=== PATIENT | male | born 1955 | race Caucasian/White ===

== ENCOUNTER → 2022-06-20 12:47 | Outpatient (CLI) | payer OTHER, SELFPAY ==
--- NOTE | ~2022-06-20 | CT_ITS ---
EXAMINATION: CT abdomen wo/w con DATE: 06/20/2022 13:21 INDICATION: Right renal mass TECHNIQUE: Computed tomography (CT) of the abdomen and pelvis was performed without intravenous contr ast. Automated exposure control and iterative reconstruction technique were employed. Exam dose: 178 3.86 mGy-cm total exam DLP. COMPARISON: None. FINDINGS: There is approximately 17 x 25 mm mildly irregular hypoattenuating lesion of the medial mid right kidney, with attenuation of approximately 25 Hounsfield units precontrast and up to 39 Hounsfi eld units postcontrast, suggesting an enhancing solid mass. Hypernephroma is suspected. MR renal exam ination is recommended. Probable 4 mm lower pole right renal cyst and 11 mm upper pole left renal cyst. No urinary tract calculus or hydroureteronephrosis. The urinary bladder is excluded from this examina tion. There is a fat-containing umbilical hernia. The lung bases are clear of infiltrate or consolidation. Right lower lobe calcified pulmonary granulo ma. Normal heart size. No pericardial or pleural effusion. There is hepatic steatosis. No hepatic space-occupying mass lesion or bile duct dilatation. Status po st cholecystectomy. There are several calcifications in the pancreatic head and uncinate process cons istent with chronic pancreatitis. No pancreatic mass lesion is evident. Normal splenic size. Normal morphology of the adrenal glands. Postoperative change of the stomach. Minimal colonic diverticulosis; no CT evidence of diverticulitis . No bowel obstruction or intraperitoneal free air. Normal caliber of the abdominal aorta. No intraperitoneal or retroperitoneal mass lesion or adenopath y or ascites. Diffuse idiopathic skeletal hyperostosis of the thoracic spine. Multilevel moderately prominent degen erative disc disease of the lumbar spine. IMPRESSION: 17 x 25 mm mildly irregular enhancing mass of the right kidney, suspicious for possible hypernephroma. Consider MRI examination Bilateral renal cysts Hepatic steatosis Postoperative change of the stomach Minimal colonic diverticulosis Reviewed, dictated and finalized at [facility]. Reviewed, dictated and finalized at [facility]. IMPRESSION: 17 x 25 mm mildly irregular enhancing mass of the right kidney, luz spicious for possible hypernephroma. Consider MRI examination Bilateral renal cysts Hepatic steatosis Postoperative change of the stomach Minimal colonic diverticulosis
[2022-06-20 13:10] LABS: Estimated Glomerular Filt Rate > 60
== END ==
PROVIDERS: PCP Emergency Medicine
DX: N28.89 Other specified disorders of kidney and ureter (principal); N28.1 Cyst of kidney, acquired; K76.0 Fatty (change of) liver, not elsewhere classified; Z98.890 Other specified postprocedural states; K57.90 Diverticulosis of intestine, part unspecified, without perforation or abscess without bleeding
CPT/HCPCS: 74170; Q9967

== ENCOUNTER → 2022-10-03 10:41 | Outpatient (CLI) | payer OTHER, SELFPAY ==
--- NOTE | ~2022-10-03 | MR_ITS ---
EXAMINATION: MR abdomen wo/w con DATE: 10/03/2022 11:46 INDICATION: Kidney mass. TECHNIQUE: Magnetic resonance imaging (MRI) of the abdomen was performed without and with 20 mL Multi Kandace intravenous contrast. COMPARISON: CT abdomen 06/20/2022 FINDINGS: There is diffuse hepatic steatosis. There is a 2.0 cm cyst abutting the liver in the cholecystectomy bed. The spleen, pancreas, adrenal glands are normal. There is a 2.1 cm cyst with thin septations in right kidney (Bosniak type II). There are other cysts in the kidneys measuring up to 1.8 cm on the le ft (Bosniak type I). There are no dilated loops of bowel. There are no pathologically enlarged lymph nodes. There is no free intraperitoneal fluid. IMPRESSION: 1. Benign cysts in the kidneys. 2. Diffuse hepatic steatosis. Reviewed, dictated and finalized at [facility]. [employer]
== END ==
PROVIDERS: PCP Urology; Visit Provider Urology
DX: N28.89 Other specified disorders of kidney and ureter (principal); N28.1 Cyst of kidney, acquired; K76.0 Fatty (change of) liver, not elsewhere classified
CPT/HCPCS: 74183; A9577

== ENCOUNTER 2024-05-31 08:52 | Outpatient (CLI) | payer OTHER, SELFPAY ==
--- NOTE | ~2024-05-31 | MR_ITS ---
EXAMINATION: MR abdomen wo/w con DATE: 05/31/2024 10:10 INDICATION: Kidney mass. TECHNIQUE: Magnetic resonance imaging (MRI) of the abdomen was performed without and with 20 mL Multi Kandace intravenous contrast. COMPARISON: Abdomen MRI 10/03/2022, CT abdomen 06/20/2022 FINDINGS: There is diffuse hepatic steatosis. There are changes of cholecystectomy. There is a 13 mm cyst in th e gallbladder fossa with decrease in size from 20 mm. The spleen, pancreas, and adrenal glands are no rmal. There is a 2.5 cm cyst with multiple thin septations in right kidney (Bosniak IIF). There are m ultiple cysts in the kidneys measuring up to 1.8 cm on the left. There are no dilated loops of bowel. There are no pathologically enlarged lymph nodes. There is no free intraperitoneal fluid. IMPRESSION: 1. 2.5 cm Bosniak IIF cystic lesion of right kidney, increased in size from 2.1 cm on 10/03/2022. Abdo men MRI without and with contrast is recommended in one year. Reviewed, dictated and finalized at [facility]. IMPRESSION: 1. 2.5 cm Bosniak IIF cystic lesion of right kidney, increased in size from 2.1 cm on 10/03/2022. Abdomen MRI without and with contrast is recommended in one y ear.
== END 2024-05-31 08:53 | disposition home or self-care (01) ==
LOC: MICIMG 08:55
PROVIDERS: PCP Urology; Visit Provider Urology
DX: N28.89 Other specified disorders of kidney and ureter (principal)
CPT/HCPCS: 74183; A9577

== ENCOUNTER 2024-12-16 10:00 | Outpatient (CLI) | payer OTHER, SELFPAY ==
--- NOTE | ~2024-12-16 | MR_ITS ---
EXAMINATION: MR abdomen wo/w con DATE: 12/16/2024 11:01 INDICATION: Renal mass TECHNIQUE: Magnetic resonance imaging (MRI) of the abdomen was performed without and with 20 mL Multi merrill intravenous contrast. Sequences included coronal T2-weighted SS-FSE, coronal and axial FS 2D-F IESTA, axial STIR FSE, axial T2-weighted SS-FSE, axial T2-weighted FS SS-FSE, axial diffusion-weighte d SE, axial dual-echo T1-weighted FSPGR, and axial and coronal T1-weighted LAVA. Postcontrast axial T 1-weighted LAVA images were obtained in a time course. Postcontrast coronal T1-weighted LAVA images w ere obtained. COMPARISON: 05/31/2024, 10/03/[address] dated 06/20/2022 FINDINGS: Heart size normal. No pericardial or pleural effusion. Status post cholecystectomy. Unchanged chronic 1.5 cm cystic lesion at the gallbladder fossa. The spleen, pancreas and bilateral adrenal glands are normal. There are few simple appearing T2 hyperintense cyst in the left kidney the largest a 2.9 cm parapelvic cyst. No interval change in a 2.5 cm Bosniak 2F cystic lesion in the right kidney with mul tiple thin but discernible enhancing septations which measured less than 2 mm in thickness and withou t discrete nodular enhancing soft tissue component. Additional subcentimeter T2 hyperintense nonenhan cing simple cyst in the right kidney. Visualized portions of bowels are unremarkable. No pathological ly enlarged abdominal or upper pelvic lymphadenopathy. Moderate lumbar spondylosis. There is mild enh ancement and increased T2 signal associated with a likely subacute superior endplate compression frac ture with negligible height loss at the right side of the L5 vertebral body. No other abnormally enha ncing bone lesions. IMPRESSION: 1. Unchanged 2.5 cm Bosniak 2F cystic lesion at the right kidney. Recommend continued annual follow-u p with pre and postcontrast MRI. 2. Mild edema and enhancement underlying a likely subacute superior endplate compression fracture at the right side of L5 with minimal vertebral body height loss. Reviewed, dictated and finalized at [facility]. IMPRESSION: 1. Unchanged 2.5 cm Bosniak 2F cystic lesion at the right kidney. Recommend con tinued annual follow-up with pre and postcontrast MRI. 2. Mild edema and enhancement underlying a likely subacute superior endplate co mpression fracture at the right side of L5 with minimal vertebral body height l oss.
== END 2024-12-16 10:01 | disposition home or self-care (01) ==
PROVIDERS: PCP Urology; Visit Provider Urology
DX: N28.1 Cyst of kidney, acquired (principal); N28.89 Other specified disorders of kidney and ureter
CPT/HCPCS: 74183; A9577

== ENCOUNTER 2025-06-10 08:00 | Outpatient (RCR) | payer OTHER, SELFPAY ==
--- NOTE | 2025-05-26 14:27 | OPREHPOC ---
Outpatient Therapy Plan of Care This is a Multidisciplinary Plan of Care that may contain components documented by all disciplines (PT, OT, and ST.) PT Problem 1 PT Problem #1 Knowledge Deficit PT Goal 1 Goal / Goal Update 1. Patient will perform independent HEP Target Visit 3 PT Problem 2 PT Problem #2 Pain PT Goal 1 Goal / Goal Update 1. Patient will be able to do all activities including yard work with pain 1/10 highest Target Visit 10 PT Problem 3 PT Problem #3 Impaired Strength PT Goal 1 Goal / Goal Update 1. L MMT 5/5 and pain free in all planes Target Visit 10 PT Problem 4 PT Problem #4 Impaired Range of Motion PT Goal 1 Goal / Goal Update 1. Patient will demonstrate 145 degrees active L shoulder flexion for reaching tasks Target Visit 10
--- NOTE | 2025-05-26 14:27 | PTOPEVAL1 ---
Assessment and note entered by Skylar Mckenzie DPT Evaluation Information Assessment Status Evaluation Diagnosis m75.22, m75.122, s46.112a, e11.8, m19.012 ICD-10 Condition Codes (PT) Pain in left shoulder M25.512,Weakness R53.1 Subjective Information Pt had L shoulder scope on 04/23/25 and repair of rotator cuff tendon. Pt states he had a sling for about 2 weeks. Pt reports he has been moving his arm more in the past couple weeks. Highest pain recently 3-4/10 and 1/10 lowest. Naproxen helps with pain. Pt is R handed. Pt is currently unable to do all typical activities like yard work. Modifies certain activities like getting dressed. Pt works as an ER physician. Returns to [place] in a week or two. Patient goal: rehab it, get back to normal. Reported Pain Level Pain Score 1: Self Report Assessment PT Clinical Summary The patient is presenting to skilled therapy s/p L shoulder arthroscopy on 04/23/25. He presents with decreased range of motion in all planes in addition to pain which are contributing to his difficulty doing typical activities including yard work. He will benefit from skilled therapy to address range of motion, strength, and pain in order to restore full function. Plan of Care Interventions Electrical Stimulation,Hot Pack/Cold Pack,Manual Therapy,Neuro Re-education,Patient/Caregiver Education,Therapeutic Activities,Therapeutic Exercise PT Services Indicated Yes Treatment Frequency and 2 times a week for 10 visits Duration These treatments will address the objective and functional deficits as defined above. The patient will be advanced safely and appropriately in order for the patient to progress towards his/her prior level of function. Additional exercises will be introduced and as well as a comprehensive home exercise program upon discharge, if needed, ?to ensure carryover of functional gains achieved in the clinic. This treatment plan has been reviewed and agreement upon by the patient.
--- NOTE | 2025-08-18 10:54 | PTOPDC ---
Assessment and note entered by Edgar Cobian, PT Evaluation Information Assessment Status Discharge - Pt Not Present Diagnosis m75.22, m75.122, s46.112a, e11.8, m19.012 ICD-10 Condition Codes (PT) Pain in left shoulder M25.512,Weakness R53.1 Subjective Information Pt to be discharged from physical therapy due to health insurance conflict. Assessment PT Clinical Summary Pt to be discharge from Physical therapy services and establish care at a in network facility due to health insurance. Plan of Care PT Services Indicated No
== END 2025-08-18 12:36 | disposition home or self-care (01) ==
LOC: ANHGOSHPT 08:00
PROVIDERS: PCP Urology
DX: M75.22 Bicipital tendinitis, left shoulder (principal); M75.122 Complete rotator cuff tear or rupture of left shoulder, not specified as traumatic; S46.112A Strain of muscle, fascia and tendon of long head of biceps, left arm, initial encounter; E11.8 Type 2 diabetes mellitus with unspecified complications; M19.012 Primary osteoarthritis, left shoulder; R53.1 Weakness
CPT/HCPCS: 97014; 97110; 97161; G0283